=== PATIENT | male | born 1955 | race Caucasian/White ===

== ENCOUNTER → 2019-07-10 | Day surgery (SDC) | payer BC ==
[2019-06-29 09:57] LABS: HEMATOCRIT 52.5 % (42.0-52.0); HEMOGLOBIN 17.9 gm/dL (14.0-18.0); MCH 30.8 pg (26.0-34.0); MCV 90.6 fL (80.0-100.0); MPV 9.1 fl. (7.2-11.1); RBC 5.8 mil/uL (4.50-6.00); RDW-CV 14.6 % (10.5-14.5); WBC 8.8 thou/uL (4.0-11.0)
[2019-06-29 10:12] LABS: ALBUMIN 3.5 g/dL (3.4-5.0); CALCIUM 8.6 mg/dL (8.5-10.1); CREATININE 1.2 mg/dL (0.6-1.3); POTASSIUM 4.3 mmol/L (3.5-5.1); TOTAL BILIRUBIN 0.4 mg/dL (<0.1-1.0); TOTAL PROTEIN 6.4 g/dL (6.4-8.2)
--- NOTE | 2019-06-29 12:43 | EKG ---
[place] [address] ELECTROCARDIOGRAM REPORT Name: TIARA LEVY Room: [facility].#: [id number] Admission: Attend Phys: Ag Melendez DO Discharge: Date of : 57 Report #: [id number] THIS REPORT FOR: //name// [facility] Test Date: 2019-06-29 Test Time: 10:03:17 Pat Name: TIARA LEVY Department: Room: Gender: M Chairman & Ceo: : 1955 Requested By: Ag Melendez Order Number: [id number] Reading MD: Arthur Garcia Measurements Intervals [place] Rate: 90 P: 50 SC: 123 QRS: 41 QRSD: 90 T: 67 QT: 361 QTc: 442 Interpretive Statements Sinus rhythm early transition Low voltage, extremity leads Minimal ST elevation, inferior leads No previous ECG available for comparison Electronically Signed On 06-29-2019 12:43:32 CDT by Arthur Garcia [email or web address] <ELECTRONICALLY SIGNED> By: Arthur Garcia MD, [facility] 06/29/19 1243 1003 1003 Arthur Garcia MD, FACC /EPI
[~2019-07-10] MED LIST: IBUPROFEN 200200 M1 PO; LIPITOR 20 MG T20 M1 PO; ZANTAC 150MG T150 MG PO
--- NOTE | 2019-08-22 13:34 | OP ---
[address] [address] OPERATIVE REPORT Name: TIARA LEVY Room: [facility].#: [id number] Admission: 07/10/19 Attend Phys: Ag Melendez DO Discharge: Date of : 57 Report #: [id number] THIS REPORT FOR: //name// CC: Ag Ramírez DO DATE OF SERVICE: 07/10/2019 PREOPERATIVE DIAGNOSIS: Right inguinal hernia. POSTOPERATIVE DIAGNOSES: Bilateral inguinal hernias; right was an indirect, left was direct and indirect. PROCEDURE: Da Emeka robotic-assisted bilateral inguinal hernia repair with mesh. SURGEON: Dr. Ag Melendez BUCKLE ATTACHER: Dr. Jim Hernandez. ANESTHESIA: General endotracheal and also TAP blocks performed by Anesthesia postoperatively. ESTIMATED BLOOD LOSS: 20 mL. COMPLICATIONS: None. DESCRIPTION OF PROCEDURE: After obtaining proper consents and discussing risks and complications with the patient, he was taken to the operating room, laid in the supine position, administered general anesthesia. He was then prepped and draped in the usual sterile fashion. A timeout was performed. We confirmed the appropriate patient and procedure. Preoperative antibiotics had been given. SCDs were in place. The site had been marked in the preoperative holding area. We then made a small supraumbilical skin incision with a #11 scalpel blade. This was carried down through the skin into the subcutaneous tissue using electrocautery for hemostasis. Once the fascia was encountered, it was incised along the midline, grasped and elevated with Jean clamps and divided further. The peritoneum was then bluntly opened using a hemostat. A finger was placed inside the peritoneal cavity to assure that there were no sole-incisional adhesions. Next, we placed the patient in Trendelenburg position, we were then easily able to identify a large indirect inguinal hernia on the right side and then on the left side we noticed a smaller indirect inguinal as well as a moderate sized direct inguinal hernia. We then placed two more trocars, one in the right upper quadrant, one in the left upper quadrant. We then docked the da Emeka robot. Once the robot was docked, I [id number] OPERATIVE REPORT Name: TIARA LEVY Room: [facility].#: [id number] Admission: 07/10/19 Attend Phys: Ag Melendez DO Discharge: Date of : 57 Report #: [id number] right upper quadrant and a bipolar fenestrated grasper in the left upper quadrant. I then broke scrub and went on console. Once on console, I was able to open the peritoneum from the median umbilical ligament laterally to the ASIS on the right side first. I then was able to dissect the hernia sac completely free from the cord and cord structures and reduced it all the way back into the peritoneal cavity. The dissection was carried all the way down to the pubic ramus medially and then all the way laterally to the ASIS to allow for placement of a large Bard 3DMax mesh. Next, I turned my attention to the patient's left side where the peritoneum was opened from the median umbilical ligament laterally to the ASIS. Again, I was then able to dissect the preperitoneal space and reduce the direct inguinal hernia. There was a small indirect inguinal hernia, which was also reduced back. Once the peritoneal flap was enlarged enough for placement of a large Bard 3DMax mesh, I then placed meshes on the right and left side. They were sutured in place to Jaswinder's ligament medially on both sides with a 2-0 Vicryl suture and then also medial and lateral to the inferior epigastric vessels also using 2-0 Vicryl suture. I then closed the peritoneal flaps using a 2-0 absorbable V-Loc suture on both sides. There were small holes in both sides of the peritoneum, which were repaired using 2-0 Vicryl suture. I then rescrubbed and went back to the patient's bedside. We undocked the da Emeka robot, removed all of the instruments. The 12 mm right upper quadrant trocar was removed and a PMI closure device was used to close the fascia in this area with 0 Vicryl suture. We then closed the umbilical fascia with the 2 previously placed 0 Vicryl sutures plus two additional Vicryl sutures. Skin incisions were all closed using 4-0 Monocryl subcuticular stitches. Mastisol, Steri-Strips, sterile OpSite and pressure dressings were placed. The patient was awakened in the operating room and transported to recovery room in stable condition. <ELECTRONICALLY SIGNED> By: Ag Melendez DO 08/22/19 1334 1304 1522Aalvin Melendez DO /nt
== END | disposition home or self-care (01) ==
LOC: M.SUR 06:34
PROVIDERS: Surgery
DX: K40.20 Bilateral inguinal hernia, without obstruction or gangrene, not specified as recurrent (principal); J44.9 Chronic obstructive pulmonary disease, unspecified; K21.9 Gastro-esophageal reflux disease without esophagitis; E78.5 Hyperlipidemia, unspecified; Z88.8 Allergy status to other drugs, medicaments and biological substances; Z79.899 Other long term (current) drug therapy; Z98.890 Other specified postprocedural states